=== PATIENT | female | born 1950 | race Caucasian/White ===

== ENCOUNTER 2017-04-30 07:35 | Day surgery (SDC) | payer MEDICARE, SELFPAY ==
[2017-04-30] VITALS (15 sets, daily range): BP systolic 92–122; BP diastolic 45–63; PULSE 64–87; RESP 16–20; O2SAT 96–99; BMI 22.4
--- NOTE | 2017-04-30 | IR_ITS ---
CARDIAC CATHETERIZATION DATE OF CATHETERIZATION:04/30/2017 11:23 AM PROCEDURES: 1. Left heart catheterization 2. Left ventriculogram 3. Selective coronary angiogram INDICATION FOR TEST: 1. Angina pectoris 2. Left bundle-branch block 3. Risk factor for coronary artery disease Informed consent was obtained prior to the procedure. COMPLICATIONS: None ESTIMATED BLOOD LOSS: Less than 10 ml. TECHNIQUE: One percent lidocaine used to anesthetize the right anterior aspect of the wrist. The right radial artery was accessed via the Seldinger technique. A 6 [place] sheath was placed in the right radial artery. 2.5 mg of verapamil, 800 mcg of nitroglycerin and 5000 U Heparin were given through the arterial sheath. The trap catheter was also used to perform left heart catheterization and left ventriculography. At the end of the procedure the patient was transferred to the post-op holding area in stable condition for arterial sheath removal. ANGIOGRAPHIC RESULTS: 1. The left main artery normal 2. The left anterior descending artery has proximal luminal irregularities of 5-10% with mild luminal irregularities in the mid segment of 5-10%. 3. The circumflex artery dominant normal 4. The right coronary artery is a large dominant vessel and has a proximal mostly concentric 30% stenosis which is smooth tubular 5. The FALL ventriculogram reveals normal 65% 6. The left ventricular end-diastolic pressure mildly elevated at 15 mmHg IMPRESSION: 1. Mild nonflow limiting coronary artery disease 2. Normal ejection fraction 3. Mildly elevated LVEDP PLAN: 1. Medical management 2. Patient likely has microvascular ischemia and or endothelial dysfunction 3. Antianginal medication should benefit with possible addition of low dose diuretics in order to decrease EDP 4. Cardiac rehabilitation 5. Avoidance of tobacco products 6. LDL less than 55
[2017-04-30 08:13] LABS: Basophils % 0.5 % (0.1-2.0); Eosinophils # 0.1 K/mm3 (0.0-0.4); Eosinophils % 2.3 % (0.1-12.0); Hematocrit 38.3 % (37.0-47.0); Hemoglobin 12.7 g/dL (12.2-16.2); Lymphocytes # 1.7 K/mm3 (0.7-4.5); Lymphocytes % 35.2 K/mm3 (10-50); Mean Corpuscular HGB Conc 33.1 g/dL (31.8-35.4); Mean Corpuscular Hemoglobin 28.5 pg (27.0-31.2); Mean Corpuscular Volume 86.3 fl (81-99); Mean Platelet Volume 7.3 fl (7.4-10.4); Monocytes # 0.3 K/mm3 (0.1-1.0); Monocytes % 5.4 % (1.7-9.3); Neutrophils # 2.8 K/mm3 (1.8-7.8); Neutrophils % 56.6 % (37.0-80.0); Platelet Count 180 K/mm3 (142-424); Red Blood Count 4.44 M/mm3 (4.20-5.40); Red Cell Distribution Width 12.1 % (11.5-17.5); White Blood Count 4.9 K/mm3 (4.8-10.8)
[2017-04-30 08:29] LABS: Anion Gap 13.2 mEq/L (5-15); Blood Urea Nitrogen 12 mg/dL (7-18); Carbon Dioxide 25 mmol/L (21.0-32.0); Chloride 105 mmol/L (98-107); Creatinine Clearance Estimated 51 mL/min (0-300); Estimated Glomerular Filt Rate 124 ml/min (>60); GFR (African American) 150 ML/MIN (>60); Glucose 89 mg/dL (74-106); Sodium 139 mmol/L (136-145)
[2017-04-30 08:33] LABS: Potassium 4.2 mmoL/L (3.5-5.1)
--- NOTE | 2017-04-30 16:40 | SUR.PHASEII ---
Pt arrived back at ER admissions shortly after leaving bleeding from her radial site, manual pressure was held for 20 minutes, dsg removed, site is no longer bleeding, slight area of bruising noted but no hematoma, patient is waiting in bay being observed to watch for recurrence of bleeding.
== END 2017-04-30 16:12 | disposition home or self-care (01) ==
LOC: CATHLAB 07:37
PROVIDERS: Visit Provider Internal Medicine
DX: I25.119 Atherosclerotic heart disease of native coronary artery with unspecified angina pectoris (principal); Z72.0 Tobacco use; I44.7 Left bundle-branch block, unspecified
CPT/HCPCS: 80048; 85025; 93458; 99152; C1725; C1769; J1644; Q9967

== ENCOUNTER 2017-05-01 21:12 | Emergency (ER) | payer MEDICARE, SELFPAY ==
[2017-05-01 21:19] VITALS: BP 130/76; PULSE 76; RESP 18; TEMP 36.4; O2SAT 99; BMI 22.3
== END 2017-05-01 22:09 | disposition left against medical advice (07) ==
LOC: ER 21:24
PROVIDERS: Emergency Provider Emergency Medicine
DX: Z53.29 Procedure and treatment not carried out because of patient's decision for other reasons (principal); R60.0 Localized edema
CPT/HCPCS: 99211; 99282

== ENCOUNTER → 2018-06-16 11:05 | Outpatient (CLI) | payer MEDICARE, SELFPAY ==
--- NOTE | 2018-06-16 11:15 | XR_ITS ---
EXAM: XR lumbar spine min 4V HISTORY: Low back pain ITS.REASON: LUMBAGO W/LT SCIATICA ORDERING PHYSICIAN: Jc Kinsey PATIENT AGE: 67 years COMPARISON: None FINDINGS: Normal alignment. No fracture or dislocation. No lytic or blastic change. No significant degenerative change. The disc spaces are preserved. IMPRESSION: Negative lumbar spine
== END ==
PROVIDERS: PCP Internal Medicine; Visit Provider Internal Medicine
DX: M54.42 Lumbago with sciatica, left side (principal)
CPT/HCPCS: 72110

== ENCOUNTER → 2018-07-21 13:25 | Outpatient (CLI) | payer MEDICARE, SELFPAY ==
--- NOTE | 2018-07-21 13:26 | CI_ITS ---
Cerebrovascular Exam Indications: 780.4 Dizziness and giddiness. IMPRESSIONS 1. The bilateral vertebral arteries are patent with normal antegrade flow. 2. Study suggests less than 20% stenosis involving the right internal carotid artery. 3. Study suggests less than 20% stenosis involving the left internal carotid artery. History: Risk factors: Extobacco use. Hyperlipidemia. Carotid duplex study. Complete study and Doppler flow study including spectral analysis, color and lorenzo scale imaging. Height: Height: 160cm. Height: 63in. Weight: Weight: 59kg. Weight: 129.7lb. Body mass index: BMI: 23kg/m^2. Body surface area: BSA: 1.63m^2. Location: Vascular laboratory. Patient status: Outpatient. Tables: Arterial flow: + +--------+--------+ Location V sys V ed + +--------+--------+ Right CCA - proximal 99cm/s 21.2cm/s + +--------+--------+ Right CCA - distal 77.8cm/s 21.2cm/s + +--------+--------+ Right ECA 71.9cm/s 10.4cm/s + +--------+--------+ Right ICA - proximal 86.4cm/s 27.5cm/s + +--------+--------+ Right ICA - mid 79.8cm/s 21.7cm/s + +--------+--------+ Right ICA - distal 89.3cm/s 30cm/s + +--------+--------+ Right vertebral 40.8cm/s 12.6cm/s + +--------+--------+ Left CCA - proximal 95.6cm/s 20cm/s + +--------+--------+ Left CCA - distal 77.1cm/s 22.2cm/s + +--------+--------+ Left ECA 55.4cm/s 7.6cm/s + +--------+--------+ Left ICA - proximal 70.3cm/s 22.4cm/s + +--------+--------+ Left ICA - mid 82.8cm/s 23.9cm/s + +--------+--------+ Left ICA - distal 86.2cm/s 29.4cm/s + +--------+--------+ Left vertebral 73.2cm/s 21.8cm/s + +--------+--------+ Velocity ratios: + + + + + + Right, V sys Right, V ed Left, V sys Left, V ed + + + + + + Max ICA/dist CCA 1.15 1.42 1.12 1.32 + + + + + + (Report amended ) Electronically signed by: Nabil Liz [id number]
== END ==
PROVIDERS: PCP Internal Medicine; Visit Provider Internal Medicine
DX: E78.2 Mixed hyperlipidemia (principal); I25.10 Atherosclerotic heart disease of native coronary artery without angina pectoris; I44.7 Left bundle-branch block, unspecified; R06.09 Other forms of dyspnea; R07.9 Chest pain, unspecified; R42 Dizziness and giddiness; R94.31 Abnormal electrocardiogram [ECG] [EKG]; T73.2XXA Exhaustion due to exposure, initial encounter
CPT/HCPCS: 93306; 93880

== ENCOUNTER 2020-06-01 15:07 | Emergency (ER) | payer MEDICARE, SELFPAY ==
[2020-06-01 15:33] VITALS: BP 155/79; PULSE 76; RESP 16; TEMP 36.5; O2SAT 100; BMI 22.6
--- NOTE | 2020-06-01 15:41 | HMH.EDUTC ---
[facility] Disposition Clinical Impression: Shingles Qualifiers: Herpes zoster complications: without complications Qualified Code(s): B02.9 - Zoster without complications Disposition: Home, Self-Care Condition on Discharge: Good Instructions: Shingles, DI for Shingles, Acyclovir Additional Instructions: Shingles is a painful rash. Shingles is caused by the same virus that causes chickenpox (varicella-zoster). After you get chickenpox, the virus stays in your body for several years without causing any symptoms. Shingles occurs when the virus becomes active again. The active virus travels along a nerve to your skin and causes a rash You may need any of the following: Antiviral medicine helps decrease symptoms and healing time. They may also decrease your risk of developing nerve pain. You will need to start taking them within 3 days of the start of symptoms to prevent nerve pain. Acetaminophen decreases pain and fever. It is available without a doctor's order. Follow directions. Read the labels of all other medicines you are using to see if they also contain acetaminophen, or ask your doctor or pharmacist. Acetaminophen can cause liver damage if not taken correctly. Do not use more than 4 grams (4,000 milligrams) total of acetaminophen in one day. NSAIDs , such as ibuprofen, help decrease swelling, pain, and fever. This medicine is available with or without a doctor's order. NSAIDs can cause stomach bleeding or kidney problems in certain people. If you take blood thinner medicine, always ask if NSAIDs are safe for you. Always read the medicine label and follow directions. Do not give these medicines to children under 6 months of age without direction from your child's healthcare provider. Keep your rash clean and dry. Cover your rash with a bandage or clothing. Do not use bandages that stick to your skin. The sticky part may irritate your skin and make your rash last longer. How can you care for yourself at home? Take your medicines exactly as prescribed. Call your doctor if you think you are having a problem with your medicine. Antiviral medicine helps you get better faster. Try not to scratch or pick at the blisters. They will crust over and fall off on their own if you leave them alone. Put cool, wet cloths on the area to relieve pain and itching. You can also use calamine lotion. Try not to use so much lotion that it cakes and is hard to get off. Put cornstarch or baking soda on the sores to help dry them out so they heal faster. Do not use thick ointment, such as petroleum jelly, on the sores. This will keep them from drying and healing. To help remove loose crusts, soak them in tap water. This can help decrease oozing, and dry and soothe the skin. Take an [id number] pain medicine, such as acetaminophen (Tylenol), ibuprofen (Advil, Motrin), or naproxen (Aleve). Read and follow all instructions on the label. Avoid close contact with people until the blisters have healed. It is very important for you to avoid contact with anyone who has never had chickenpox or the chickenpox vaccine. women, young babies, and anyone else who has a hard time fighting infection (such as someone with HIV, diabetes, or cancer) is especially at risk. Follow up with your Family Doctor as needed Return if needed Straight to ER if any life threatening symptoms Prescriptions: Acyclovir [Acyclovir 800mg tab] 800 mg PO 5XDAY 7 Days #35 tab Transmission Status: Pending to [facility] Referrals: Jc Kinsey [Primary Care Provider] - As needed Time of Disposition: 15:50 Medical Decision Making - Gigi Inquiry Pt receiving controlled substance: No Gigi was queried for this patient: No Vital Signs: 06/01/20 15:33 Temperature 97.7 F Temperature Source Tympanic Pulse Rate [Right] 76 Respiratory Rate 16 Blood Pressure [Right Arm] 155/79 H Blood Pressure Mean [Right Arm] 104 Blood Pressure Source [Right Arm] Automatic Cuff Blood Pressure Position
[2020-06-01 16:02] VITALS: BP 150/77; PULSE 71; RESP 16; TEMP 36.5
== END 2020-06-01 16:02 | disposition home or self-care (01) ==
PROVIDERS: Emergency Provider Nurse Practitioner; PCP Internal Medicine
DX: B02.9 Zoster without complications (principal); M79.7 Fibromyalgia; K21.9 Gastro-esophageal reflux disease without esophagitis; E03.9 Hypothyroidism, unspecified; Z87.891 Personal history of nicotine dependence; Z79.899 Other long term (current) drug therapy
CPT/HCPCS: G0463; 99202

== ENCOUNTER → 2021-03-28 11:33 | Outpatient (CLI) | payer MEDICARE, SELFPAY ==
[2021-03-28 11:49] LABS: Basophils % 0.3 % (0.1-2.0); Eosinophils # 0.1 K/mm3 (0.0-0.4); Eosinophils % 2.2 % (0.1-12.0); Hematocrit 37.4 % (37.0-47.0); Hemoglobin 12.6 g/dL (12.2-16.2); Lymphocytes # 1.7 K/mm3 (0.7-4.5); Lymphocytes % 34.7 % (10-50); Mean Corpuscular HGB Conc 33.8 g/dL (31.8-35.4); Mean Corpuscular Hemoglobin 29.8 pg (27.0-31.2); Mean Corpuscular Volume 88.2 fl (81-99); Mean Platelet Volume 7.8 fl (7.4-10.4); Monocytes # 0.4 K/mm3 (0.1-1.0); Monocytes % 7.5 % (1.7-9.3); Neutrophils # 2.6 K/mm3 (1.8-7.8); Neutrophils % 55.2 % (37.0-80.0); Platelet Count 208 K/mm3 (142-424); Red Blood Count 4.24 M/mm3 (4.20-5.40); Red Cell Distribution Width 12.7 % (11.5-17.5); White Blood Count 4.8 K/mm3 (4.8-10.8)
[2021-03-28 12:19] LABS: Erythrocyte Sedimentation Rate 21 mm/hr (0-30)
[2021-03-28 12:53] LABS: Alanine Aminotransferase 51 U/L (12-78); Anion Gap 9.1 mEq/L (5-15); Aspartate Amino Transferase 50 U/L (14-36); Bilirubin,Total 0.3 mg/dl (0.2-1.3); Blood Urea Nitrogen 12 mg/dl (7-17); Calcium 9.1 mg/dl (8.4-10.2); Carbon Dioxide 32 mmol/L (22.0-30.0); Chloride 98 mmol/L (98-107); Estimated Glomerular Filt Rate 99 ml/min (>60); GFR (African American) 120 ML/MIN (>60); Glucose 86 mg/dl (74-100); Potassium 4.1 mmoL/L (3.5-5.1); Sodium 135 mmol/L (136-145); Total Protein,Serum 6.6 g/dl (6.3-8.2)
[2021-03-28 12:54] LABS: Albumin Level 4.2 g/dl (3.5-5.0); Albumin/Globulin Ratio 1.8 (1.1-1.8); Alkaline Phosphatase 84 U/L (38-126); Globulin 2.4 g/dL (1.3-3.2)
[2021-03-28 13:25] LABS: Thyroid Stimulating Hormone 1.42 uIU/mL (0.465-4.68)
[2021-03-28 13:59] LABS: Vitamin B12 378 pg/mL (239-931)
== END ==
PROVIDERS: Visit Provider Internal Medicine
DX: E03.9 Hypothyroidism, unspecified (principal); E78.5 Hyperlipidemia, unspecified; R73.01 Impaired fasting glucose; G60.9 Hereditary and idiopathic neuropathy, unspecified; M79.7 Fibromyalgia
CPT/HCPCS: 80053; 82607; 82746; 84443; 85025; 85651

== ENCOUNTER → 2021-04-03 12:48 | Outpatient (CLI) | payer MEDICARE, SELFPAY ==
--- NOTE | 2021-04-03 13:08 | US_ITS ---
APPROVED REPORT Exam Type: Lower Extremity Segmental Pressures Brim Edge Trimmer: [place]hele RVT Indications Claudication: Bilaterally Rest Pain: Bilaterally Numbness/Tingling History of Smoking DECREASED PULSES BILATERAL Risk Factors Hyperlipidemia History of Smoking Pressures/Indices Right Indices Left Indices Brachial 143.00 mmHg Brachial 159.00 mmHg Low Thigh 160.00 mmHg 1.01 Low Thigh 167.00 mmHg 1.05 Calf 168.00 mmHg 1.06 Calf 177.00 mmHg 1.11 Ankle(PT) 187.00 mmHg 1.18 Ankle(PT) 179.00 mmHg 1.13 Ankle(DP) 169.00 mmHg 1.06 Ankle(DP) 174.00 mmHg 1.09 Digit 67.00 mmHg 0.42 Digit 76.00 mmHg 0.48 Findings RT KAROLYN:1.18 LT KAROLYN:1.13 RT TBI:0.42 LT TBI:0.48 NORMAL WAVEFORMS BILATERAL NORMAL PULSES BILATERAL Conclusion RT KAROLYN:1.18 LT KAROLYN:1.13 RT TBI:0.42 LT TBI:0.48 Slightly low TBI suggesting small vessel disease NORMAL WAVEFORMS BILATERAL NORMAL PULSES BILATERAL Electronically signed by : Nabil Liz MD 04/03/2021 15:47:26
== END ==
PROVIDERS: PCP Internal Medicine; Visit Provider Internal Medicine
DX: R09.89 Other specified symptoms and signs involving the circulatory and respiratory systems (principal)
CPT/HCPCS: 93923

== ENCOUNTER 2021-10-12 11:43 | Emergency (ER) | payer MEDICARE, SELFPAY ==
--- NOTE | 2021-10-12 12:00 | HMH.EDUTC ---
[facility] [place] Clinical Impression: Contact dermatitis Qualifiers: Contact dermatitis type: unspecified Contact dermatitis trigger: unspecified trigger Qualified Code(s): L25.9 - Unspecified contact dermatitis, unspecified cause Disposition: Home, Self-Care Condition on Discharge: Good Instructions: DI for Contact Dermatitis Additional Instructions: Try to identify and avoid contact with the offending substance. Don't put the topical steroids (triamcinolone) on your face or your groin. Follow up with your regular doctor. GO TO THE ER FOR ANY WORSENING SYMPTOMS OR CONCERNS Prescriptions: Triamcinolone Acetonide 1 applicatio TP TIDP PRN 7 Days #1 gm PRN Reason: Itching Transmission Status: Received by [facility] Referrals: Jc Kinsey MD [Primary Care Provider] - Time of Disposition: 12:24 Medical Decision Making - Medical Records Medical records reviewed: No: I reviewed the patient's medical records. - Gigi Inquiry Pt receiving controlled substance: No Vital Signs: 10/12/21 12:04 10/12/21 12:30 Temperature 98.0 F 98.0 F Temperature Source Oral Pulse Rate 63 Pulse Rate [Left] 63 Respiratory Rate 17 17 Blood Pressure 146/53 H Blood Pressure [Right Arm] 146/53 H Blood Pressure Mean [Right Arm] 84 02 Sat by Pulse Oximetry 99 Medical Decision Narrative: she refused oral steroids and im injection steroids. [facility] [place] - General Stated complaint: rash Time Seen by Provider: 10/12/21 12:00 - History of Present Illness Provider Complaint: She has had an itchy rash on her lower back for the past 2 days. She denies any known exposure to any irritants. - Related Data Home Medications Medication Instructions Recorded Confirmed aspirin 81 mg tablet,delayed 81 mg PO ONCE 04/23/17 07/12/21 release melatonin 5 mg tablet 5 mg PO HS PRN 08/06/18 07/12/21 levothyroxine 88 mcg tablet 75 mcg PO DAILY tab 06/22/20 07/12/21 zinc acetate 50 mg (zinc) capsule 50 mg PO DAILY 06/22/20 07/12/21 zolpidem 5 mg tablet 5 mg PO HS tab 06/22/20 06/22/20 Previous Rx's Medication Instructions Recorded atorvastatin 20 mg tablet See Rx Instructions .ROUTE 03/29/21 .COMPLEX #90 tab Triamcinolone Acetonide 1 applicatio TP TIDP PRN 7 Days #1 10/12/21 gm Allergies Allergy/AdvReac Type Severity Reaction Status Date / Time levofloxacin Allergy Mild Verified 10/12/21 12:06 [facility] History - Hepatitis A Screen Attestation statement:: This patient has been screened for Hepatitis A risk factors. I have reviewed the patient's past medical history: Yes Medical History: Reports:: Gastroesophageal Reflux Disease(GERD) Denies:: Cancer, Diabetes Mellitus Type 1, Diabetes Mellitus Type 2, MRSA, Seizures Other Medical History: Reports: Fibromyalgia, Hypothyroidism Other Surgeries: Yes: Cardiac Catheterization, Other Amputation: No Fractures: No - Social History Smoking Status: Never smoker Tobacco Type: cigarettes Alcohol Intake: never Alcohol Intake Frequency:: other Substance Use Type: denies use Occupational Status: other Housing: house Household Members: spouse Family Hx:: Coronary Artery Disease, Heart Attack ROS Obtained: Yes All systems reviewed & no additional complaints - Constitutional Constitutional: Denies chills, Denies fever(s) - Musculoskeletal Musculoskeletal: Denies joint pain - Integumentary/Breasts Skin/Breast: Reports as per HPI Physical Exam - General General appearance: alert, in no apparent distress - Head Head exam: atraumatic, normocephalic, normal inspection - Eye Eye exam: Present: normal appearance, PERRL, EOMI - ENT ENT exam: Present: normal exam, normal oropharynx, mucous membranes moist, TM's normal bilaterally, normal external ear exam - Neck Neck exam: Present: normal inspection, full ROM, trachea midline. Absent: meningismus, lymphadenopathy - Chest Chest inspection: Present: normal inspection, symmetric c
[2021-10-12 12:04] VITALS: BP 146/53; PULSE 63; RESP 17; TEMP 36.7; O2SAT 99; BMI 22.8
[2021-10-12 12:30] VITALS: BP 146/53; PULSE 63; RESP 17; TEMP 36.7
== END 2021-10-12 12:31 | disposition home or self-care (01) ==
PROVIDERS: Emergency Provider Nurse Practitioner Family; PCP Internal Medicine
DX: L25.9 Unspecified contact dermatitis, unspecified cause (principal)
CPT/HCPCS: 99212; G0463

== ENCOUNTER → 2022-03-13 11:17 | Outpatient (CLI) | payer MEDICARE, SELFPAY ==
[2022-03-13 12:18] LABS: Basophils # 0.1 K/mm3 (0-0.2); Basophils % 0.9 % (0.1-2.0); Eosinophils # 0.1 K/mm3 (0.0-0.4); Eosinophils % 1.4 % (0.1-12.0); Hematocrit 39.9 % (37.0-47.0); Hemoglobin 12.9 g/dL (12.2-16.2); Lymphocytes # 1.9 K/mm3 (0.7-4.5); Mean Corpuscular HGB Conc 32.4 g/dL (31.8-35.4); Mean Corpuscular Hemoglobin 29.1 pg (27.0-31.2); Mean Corpuscular Volume 89.8 fl (81-99); Mean Platelet Volume 7.5 fl (7.4-10.4); Monocytes # 0.3 K/mm3 (0.1-1.0); Monocytes % 5.7 % (1.7-9.3); Neutrophils # 3.1 K/mm3 (1.8-7.8); Neutrophils % 57.1 % (37.0-80.0); Platelet Count 250 K/mm3 (142-424); Red Blood Count 4.44 M/mm3 (4.20-5.40); Red Cell Distribution Width 13.1 % (11.5-17.5); White Blood Count 5.4 K/mm3 (4.8-10.8)
[2022-03-13 12:48] LABS: Chloride 101 mmol/L (98-107); Potassium 4.7 mmoL/L (3.5-5.1); Sodium 134 mmol/L (136-145)
[2022-03-13 12:51] LABS: Alanine Aminotransferase 38 U/L (12-78); Albumin Level 4.3 g/dl (3.5-5.0); Albumin/Globulin Ratio 1.7 (1.1-1.8); Alkaline Phosphatase 96 U/L (38-126); Anion Gap 8.7 mEq/L (5-15); Aspartate Amino Transferase 40 U/L (14-36); Blood Urea Nitrogen 21 mg/dl (7-17); Calcium 9.5 mg/dl (8.4-10.2); Carbon Dioxide 29 mmol/L (22.0-30.0); Cholesterol 181 mg/dl (140-200); Estimated Glomerular Filt Rate 99 ml/min (>60); GFR (African American) 120 ML/MIN (>60); Globulin 2.6 g/dL (1.3-3.2); Glucose 92 mg/dl (74-100); Total Protein,Serum 6.9 g/dl (6.3-8.2); Triglycerides 66 mg/dl (30-150); VLDL Cholesterol 13 mg/dL (0-40)
[2022-03-13 12:52] LABS: Bilirubin,Total 0.1 mg/dl (0.2-1.3); Chol/HDL Ratio 2.1 (1-3.5); HDL Cholesterol 87 mg/dl (40-60)
[2022-03-13 13:02] LABS: Direct LDL Cholesterol 61.87 mg/dL (100-129)
[2022-03-13 13:03] LABS: Erythrocyte Sedimentation Rate 19 mm/hr (0-30)
[2022-03-13 13:08] LABS: 25-OH Vitamin D, Total 29.2 ng/mL (30-100)
[2022-03-13 13:21] LABS: Thyroid Stimulating Hormone 1.36 uIU/mL (0.465-4.68)
[2022-03-13 14:08] LABS: Vitamin B12 324 pg/mL (239-931)
[2022-03-13 18:17] LABS: Free T4 (Free Thyroxine) 1.66 ng/dl (0.78-2.19)
== END ==
PROVIDERS: PCP Internal Medicine; Visit Provider Internal Medicine
DX: I25.10 Atherosclerotic heart disease of native coronary artery without angina pectoris (principal); E78.5 Hyperlipidemia, unspecified; E55.9 Vitamin D deficiency, unspecified; E03.9 Hypothyroidism, unspecified; R73.01 Impaired fasting glucose; G60.9 Hereditary and idiopathic neuropathy, unspecified; M79.7 Fibromyalgia
CPT/HCPCS: 36415; 80053; 80061; 82306; 82607; 84439; 84443; 85025; 85651

== ENCOUNTER → 2022-07-18 17:02 | Outpatient (CLI) | payer MEDICARE, SELFPAY ==
[2022-07-18 18:50] LABS: Alanine Aminotransferase 26 U/L (12-78); Albumin Level 4.5 g/dl (3.5-5.0); Alkaline Phosphatase 72 U/L (38-126); Aspartate Amino Transferase 36 U/L (14-36); Bilirubin,Indirect 0.3 mg/dL (0.0-0.9); Bilirubin,Total 0.3 mg/dl (0.2-1.3); Bilirubin,Unconjugated 0.4 mg/dL (0.0-1.1); Total Protein,Serum 7.1 g/dl (6.3-8.2)
[2022-07-18 19:21] LABS: Thyroid Stimulating Hormone 0.73 uIU/mL (0.465-4.68)
== END ==
PROVIDERS: PCP Internal Medicine; Visit Provider Internal Medicine
DX: E03.9 Hypothyroidism, unspecified (principal); L60.1 Onycholysis; Z87.19 Personal history of other diseases of the digestive system
CPT/HCPCS: 80076; 84443

== ENCOUNTER → 2023-02-25 15:08 | Outpatient (CLI) | payer MEDICARE, SELFPAY ==
--- NOTE | 2023-02-25 15:21 | XR_ITS ---
FINAL REPORT CLINICAL HISTORY: .bilateral knee pain FINDINGS: RIGHT KNEE 2 views of the right knee were obtained. There is no acute fracture or dislocation. There are mild degenerative changes. Visualized joint spaces are normally aligned. Soft tissues are unremarkable. IMPRESSION: No acute bony abnormality. Reviewed, Interpreted and Dictated by Quinn Arzate III, MD Transcribed by Shanta Alvarez Authenticated and [facility]
--- NOTE | 2023-02-25 15:21 | XR_ITS ---
FINAL REPORT CLINICAL HISTORY: EDY KNEE PAIN FINDINGS: LEFT KNEE 2 views of the left knee were obtained. There is no acute fracture or dislocation. There are mild degenerative changes. Visualized joint spaces are normally aligned. Soft tissues are unremarkable. IMPRESSION: No acute bony abnormality. Reviewed, Interpreted and Dictated by Quinn Arzate III, MD Transcribed by Shanta Alvarez Authenticated and [facility]
== END ==
PROVIDERS: PCP Internal Medicine; Visit Provider Internal Medicine
DX: M17.0 Bilateral primary osteoarthritis of knee (principal)
CPT/HCPCS: 73562

== ENCOUNTER → 2023-03-04 10:32 | Outpatient (CLI) | payer MEDICARE, SELFPAY ==
[2023-03-04 10:51] LABS: Basophils % 0.4 % (0.1-2.0); Eosinophils # 0.1 K/mm3 (0.0-0.4); Eosinophils % 1.7 % (0.1-12.0); Hematocrit 40.7 % (37.0-47.0); Hemoglobin 13.2 g/dL (12.2-16.2); Lymphocytes # 1.5 K/mm3 (0.7-4.5); Mean Corpuscular HGB Conc 32.5 g/dL (31.8-35.4); Mean Corpuscular Hemoglobin 29.6 pg (27.0-31.2); Mean Corpuscular Volume 91.2 fl (81-99); Mean Platelet Volume 7.8 fl (7.4-10.4); Monocytes # 0.3 K/mm3 (0.1-1.0); Monocytes % 6.7 % (1.7-9.3); Neutrophils # 2.7 K/mm3 (1.8-7.8); Neutrophils % 58.1 % (37.0-80.0); Platelet Count 233 K/mm3 (142-424); Red Blood Count 4.46 M/mm3 (4.20-5.40); White Blood Count 4.6 K/mm3 (4.8-10.8)
[2023-03-04 11:06] LABS: Alanine Aminotransferase 83 U/L (12-78); Alkaline Phosphatase 101 U/L (38-126); Aspartate Amino Transferase 69 U/L (14-36); Bilirubin,Total 0.4 mg/dl (0.2-1.3); Blood Urea Nitrogen 13 mg/dl (7-17); Calcium 8.7 mg/dl (8.4-10.2); Carbon Dioxide 29 mmol/L (22.0-30.0); Chloride 102 mmol/L (98-107); Cholesterol 238 mg/dl (140-200); Estimated Glomerular Filt Rate 99 ml/min (>60); GFR (African American) 119 ML/MIN (>60); Glucose 85 mg/dl (74-100); HDL Cholesterol 80 mg/dl (40-60); Triglycerides 66 mg/dl (30-150); VLDL Cholesterol 13 mg/dL (0-40)
[2023-03-04 11:07] LABS: Albumin Level 4.2 g/dl (3.5-5.0); Albumin/Globulin Ratio 1.4 (1.1-1.8); Anion Gap 10.5 mEq/L (5-15); Globulin 2.9 g/dL (1.3-3.2); Potassium 4.5 mmoL/L (3.5-5.1); Sodium 137 mmol/L (136-145); Total Protein,Serum 7.1 g/dl (6.3-8.2)
[2023-03-04 11:17] LABS: Direct LDL Cholesterol 112.91 mg/dL (100-129)
[2023-03-04 11:21] LABS: Erythrocyte Sedimentation Rate 24 mm/hr (0-30)
[2023-03-04 11:37] LABS: Thyroid Stimulating Hormone 2.03 uIU/mL (0.465-4.68)
[2023-03-04 11:56] LABS: Vitamin B12 333 pg/mL (239-931)
[2023-03-04 13:06] LABS: Hemoglobin A1C 5.6 % (4.0-6.0)
[2023-03-05 12:18] LABS: Albumin 3.5 g/dL (2.9-4.4); Alpha-1-Globulin 0.3 g/dL (0.0-0.4); Alpha-2-Globulin 0.9 g/dL (0.4-1.0); Protein, Total 6.7 g/dL (6.0-8.5)
== END ==
PROVIDERS: PCP Internal Medicine; Visit Provider Internal Medicine
DX: G60.9 Hereditary and idiopathic neuropathy, unspecified (principal); E78.5 Hyperlipidemia, unspecified; E03.9 Hypothyroidism, unspecified; R73.01 Impaired fasting glucose; M79.7 Fibromyalgia; M17.0 Bilateral primary osteoarthritis of knee
CPT/HCPCS: 80053; 80061; 82607; 83036; 84155; 84165; 84443; 85025; 85651

== ENCOUNTER → 2023-03-06 07:41 | Outpatient (CLI) | payer MEDICARE, SELFPAY ==
--- NOTE | 2023-03-06 07:45 | US_ITS ---
FINAL REPORT CLINICAL HISTORY: ELEVATED LIVER ENZYMES FINDINGS: RIGHT UPPER QUADRANT ULTRASOUND Sonographic images of the right upper quadrant were obtained. The pancreas is partially obscured.The liver has an unremarkable appearance.The gallbladder appears normal without evidence of gallstones.The common duct is normal. Limited images of the right kidney are normal. IMPRESSION: No acute process. Reviewed, Interpreted and Dictated by Patrick Nathan MD Transcribed by Milly Kaur Authenticated and [facility]
== END ==
PROVIDERS: PCP Internal Medicine; Visit Provider Internal Medicine
DX: R74.01 Elevation of levels of liver transaminase levels (principal)
CPT/HCPCS: 76705

== ENCOUNTER → 2023-03-18 09:13 | Outpatient (CLI) | payer MEDICARE, SELFPAY ==
--- NOTE | 2023-03-18 09:25 | XR_ITS ---
FINAL REPORT CLINICAL HISTORY: ABN SCR/POSTMENOPAUSAL COMPARISON: None FINDINGS: Using L1-4, the bone mineral density of the spine is 0.844 g/cm2, corresponding to T-score of -1.8, consistent with osteopenia. Using the left hip, the bone mineral density of the femoral neck is 0.677 g/cm2, corresponding to a T-score of -1.6, consistent with osteopenia. Using the right hip, the bone mineral density of the femoral neck is 0.651 g/cm2, corresponding to a T-score of -1.8, consistent with osteopenia. FRAX 10 year fracture risk is 1.9% for a hip fracture and 10% for a major osteoporotic fracture. NOTE: T-score: Standard deviation compared with peak bone mass of young adult mean. *Following the recommendations of the International Society of Bone densitometry, classification of hip BMD is based on the lower of two T-scores; total hip or femoral neck. IMPRESSION: Diminished bone mineral density consistent with osteopenia. Reviewed, Interpreted and Dictated by Patrick Nathan MD Transcribed by Allison Vora Authenticated and [facility]
== END ==
PROVIDERS: PCP Internal Medicine; Visit Provider Internal Medicine
DX: Z78.0 Asymptomatic menopausal state (principal)
CPT/HCPCS: 77080

== ENCOUNTER 2023-04-23 10:31 | Outpatient (POV) | payer MEDICARE, SELFPAY | END 2023-04-23 23:59 | disposition home or self-care (01) | LOC: SC 10:32 | PROVIDERS: PCP Internal Medicine; Visit Provider Dermatology | DX: Z00.00 Encounter for general adult medical examination without abnormal findings (principal) ==

== ENCOUNTER 2023-05-16 10:00 | Outpatient (RCR) | payer MEDICARE, SELFPAY ==
--- NOTE | 2023-04-11 11:46 | HMH.PTOPEV ---
PT Outpatient Evaluation Rehab PT Outpatient Evaluation Start: 04/11/23 11:34 Freq: Status: Active Protocol: Document 04/11/23 11:34 CHELI (Rec: 04/11/23 11:46 CHELI [id number]) E-signed By Amol Valles, PT Outpatient Therapy Subjective History Subjective History Pt reports h/o chronic right pain since 'power walking' ~ 3 months ago. Pt reports anterio-medial right knee pain since incident 3 months ago, also intermittent posterior right knee pain 'which is caused by my Ewing's cyst.' Pt reports recent Xray of right knee have revealed 'arthritis' . PMH: chronic bilateral knee and hip pain, LBP, fibromyalgia New diagnosis of cancer in past 12 No months? Chief Complaint Pain,Stiff,Swelling,Weakness Symptom Type Ache,Sharp,Dull Symptoms Relieved By Rest/Positioning,Elevation Symptoms Aggravated By Standing,Physical Activity, Walking Prior Functional Limitations Housework,Standing,Walking Current Functional Limitations Housework,Driving,Standing, Walking Symptom Description Constant but Variable Level of pain today (0-10) 5 Pain scale - at its best (0-10) 1 Pain scale - at its worst (0-10) 7 Hip/Knee Eval Gait Observation General Gait Pattern Observation Antalgic Gait Assistive Device Assistive Devices None / NA Palpation Tenderness right Knee Palpation Finding Tenderness Knee Palpation Overall Comment 3/4 pes anserine insertion, 2- 3/4 MCL/medial jt line, 1-2/4 ITB insertion MMT Hip Flexion Strength Grade 4- Good- Hip Abduction Strength Grade 4- Good- Hip Adduction Strength Grade 4- Good- Hip Extension Strength Grade 4- Good- Hip External Rotation Strength Grade 4 Good Hip Internal Rotation Strength Grade 4 Good Knee Extension Strength Grade 5 Normal Knee Flexion Strength Grade 5 Normal ROM Hip Flexion w/Knee Extended Passive 0-70 Range of Motion (degrees) Knee Flexion Active Range of Motion ( 0-124 degrees) Effusion joint effusion knee exam standard right Mid - Patellar Circumerential Measure ( 37.5 cm) Special Tests Knee Valgus Stress Test Negative Right Knee Varus Stress Test Negative Right Knee Gil Test Negative Right Patella Apprehension Test Negative Right Lower Extremity Functional Index Activities Today, do you or would you have any difficulty at all with: a.Any of your usual work, housework or A little bit of difficulty school activities b. Your usual hobbies, recreational or Moderate difficulty sporting activities c. Getting into or out of the bath A little bit of difficulty d. Walking between rooms No difficulty e. Putting on your shoes or socks No difficulty f. Squatting Quite a bit of difficulty g. Lifting an object, like a bag of No difficulty groceries from the floor h. Performing light activities around A little bit of difficulty your home i. Performing heavy activities around Quite a bit of difficulty your home j. Getting into or out of a car No difficulty k. Walking 2 blocks Moderate difficulty l. Walking a mile Quite a bit of difficulty m. Going up or down 10 stairs (about 1 No difficulty flight of stairs) n. Standing for 1 hour A little bit of difficulty o. Sitting for 1 hour No difficulty p. Running on even ground Quite a bit of difficulty q. Running on uneven ground Quite a bit of difficulty r. Making sharp turns while running fast Quite a bit of difficulty s. Hopping Moderate difficulty t. Rolling over in bed No difficulty LEFI Score Lower Extremity Functional Index Score 52 Outpatient Therapy Assessment Impairments Problems/Impairmments Palpation Tenderness,Impaired Range of Motion,Impaired Strength,Impaired Gait Pattern ,Impaired Walking,Impaired Standing,Impaired Driving, Impaired Household Care, Subjective C/O Pain,Impaired Self Care/Self Management Prognosis Rehab Potential Good Clinical Impression Consistent with Diagnosis Yes Short Term Goals Number of Weeks 4 Decreased Palpation Tenderness Yes: 1-2/4 right knee Increase Range of Motion Yes: right knee AROM WFL Increase Strength Yes: 4/5 RIGHT HIP MM Increase Ability to Walk Yes: 15MIN Increase Ability to Stand Yes: 15MIN Improve Ability For Household Care Yes: 15MIN Improve LEFI Score Yes: 55-60 Decrease Subjective C/O Pain Yes: 3-4/10 W/ABOVE ACTIVITIES Patient to be Ind w/ HEP Yes Construction Engineering Manager Goals Number of Weeks 6-8 Decreased Palpation Tenderness Yes: 0-1/4 RIGHT KNEE Increase Strength Yes: 4+-5/5 RLE Improve Gait Pattern without Assistive Yes: WFL ON LEVEL TERRAIN Device Increase Ability to Walk Yes: 30MIN Increase Ability to Stand Yes: 30MIN Improve Ability For Household Care Yes: 30MIN Improve LEFI Score Yes: 65-70 Decrease Subjective C/O Pain Yes: 0-2/10 W/ABOVE ACTIVITIES Patient to be Ind w/ Advanced HEP Yes Outpatient Therapy Plan of Care Treatment Plan May Include Therapeutic Exercise Including Home Yes Exercise Program Manual Therapy Techniques Yes Neuromuscular Re-education Yes Therapeutic Activities to Return to Yes Previous Functional/Work Level Gait Training Yes ADL/Self Care Education Yes Dry Needling Yes Thermal Modalities Yes Electrical Stimulation Yes Ultrasound/Phonophoresis Yes Iontophoresis Yes Orthotics/Bracing/Splinting Yes Vasopneumatic Compression Pump Yes Eval/Re-Eval Yes Frequency Times per week 2-3 Duration Number of Weeks 6-8 Addendums This patient is a candidate for social No or vocational rehab? Patient/Guardian verbally acknowledges Yes understanding of treatment program and consents to further treatment? Patient/Guardian verbally acknowledges Yes understanding of diagnosis, prognosis and goals for treatment? Eval Complexity PT Charges [id number] - Moderate Complexity Shoulder/Elbow Eval Shoulder Objective Measurements Elbow Objective Measurements PHYSICIAN CERTIFICATION: I certify the specified therapy services for Milly Lea are required, authorized, and reviewed every 30 days.
--- NOTE | 2023-05-10 13:59 | HMH.RHREAS ---
Rehab Reassessment Rehab OP Re-assessment Start: 04/11/23 11:34 Freq: Status: Active Protocol: Document 05/10/23 13:22 CHELI (Rec: 05/10/23 13:59 CHELI [id number]) E-signed By Amol Valles, PT Lower Extremity Functional Index Activities Today, do you or would you have any difficulty at all with: a.Any of your usual work, housework or A little bit of difficulty school activities b. Your usual hobbies, recreational or Quite a bit of difficulty sporting activities c. Getting into or out of the bath No difficulty d. Walking between rooms No difficulty e. Putting on your shoes or socks No difficulty f. Squatting Moderate difficulty g. Lifting an object, like a bag of A little bit of difficulty groceries from the floor h. Performing light activities around No difficulty your home i. Performing heavy activities around Extreme difficulty or unable your home to perform activity j. Getting into or out of a car A little bit of difficulty k. Walking 2 blocks A little bit of difficulty l. Walking a mile Extreme difficulty or unable to perform activity m. Going up or down 10 stairs (about 1 A little bit of difficulty flight of stairs) n. Standing for 1 hour Moderate difficulty o. Sitting for 1 hour No difficulty p. Running on even ground Quite a bit of difficulty q. Running on uneven ground Quite a bit of difficulty r. Making sharp turns while running fast Quite a bit of difficulty s. Hopping A little bit of difficulty t. Rolling over in bed No difficulty LEFI Score Lower Extremity Functional Index Score 50 Rehab Re-assessment Subjective Subjective Pt reports 0-2/10 right knee pain on VAS this am, and feels 50% better overall since I eval. Pt reports 'I don't feel the pain nearly as often as I did.' Objective Objective Notes MMT: RIGHT HIP FLX 4+-5/5, R HIP ABD 4+/5, R HIP ADD 4+-5/5 , R HIP EXT 4+-5/5, R KNEE EXT 5/5, R KNEE FLX 4+/5 TTP: RIGHT KNEE MEDIAL JT LINE 2/4, PES ANSERINE INSERTION 1 /4 AROM: WFL RIGHT KNEE FLX GAIT: WFL ON level terrain Assessment Progress Assessment Progressing as Expected Assessment Notes SIGNIFICANT IMPROVEMENTS IN TTP, AROM, AND STRENGTH Patient goals met STG'S 11/14 LTG'S 08/14 Goals Not Met STG'S 04/16, LTG'S 07/15 Plan Plan Pt to continue w/skilled P.T. to make further improvements in strength and TTP to allow for optimal function Frequency of Therapy 1-2x/wk Duration of therapy 3-5wks Time and Billing Re-Eval Time 12 Re-Eval Billing Units 1 PHYSICIAN CERTIFICATION: I certify the specified therapy services for Milly Lea are required, authorized, and reviewed every 30 days.
== END 2023-05-16 11:00 | disposition home or self-care (01) ==
LOC: PT 10:00
PROVIDERS: PCP Internal Medicine; Visit Provider Orthopaedic Surgery
DX: M25.561 Pain in right knee (principal); M25.562 Pain in left knee
CPT/HCPCS: 97010; 97014; 97035; 97110; 97163; 97164; 97530; G0283

== ENCOUNTER 2023-08-14 16:51 | Outpatient (CLI) | payer MEDICARE, SELFPAY ==
[2023-08-14 21:26] LABS: Basophils % 0.8 % (0.1-2.0); Eosinophils # 0.1 K/mm3 (0.0-0.4); Eosinophils % 1.9 % (0.1-12.0); Hematocrit 40.6 % (37.0-47.0); Hemoglobin 12.7 g/dL (12.2-16.2); Lymphocytes # 1.8 K/mm3 (0.7-4.5); Lymphocytes % 35.4 % (10-50); Mean Corpuscular HGB Conc 31.4 g/dL (31.8-35.4); Mean Corpuscular Hemoglobin 29.5 pg (27.0-31.2); Mean Corpuscular Volume 94.1 fl (81-99); Mean Platelet Volume 9.4 fl (7.4-10.4); Monocytes # 0.3 K/mm3 (0.1-1.0); Monocytes % 6.5 % (1.7-9.3); Neutrophils # 2.8 K/mm3 (1.8-7.8); Neutrophils % 55.4 % (37.0-80.0); Platelet Count 247 K/mm3 (142-424); Red Blood Count 4.31 M/mm3 (4.20-5.40); Red Cell Distribution Width 13.6 % (11.5-17.5); White Blood Count 5.1 K/mm3 (4.8-10.8)
[2023-08-14 21:36] LABS: Chloride 99 mmol/L (98-107); Potassium 4.2 mmoL/L (3.5-5.1); Sodium 134 mmol/L (136-145)
[2023-08-14 21:39] LABS: Alanine Aminotransferase 45 U/L (12-78); Albumin Level 4.1 g/dl (3.5-5.0); Albumin/Globulin Ratio 1.7 (1.1-1.8); Alkaline Phosphatase 105 U/L (38-126); Anion Gap 10.2 mEq/L (5-15); Aspartate Amino Transferase 38 U/L (14-36); Bilirubin,Total 0.5 mg/dl (0.2-1.3); Blood Urea Nitrogen 17 mg/dl (7-17); Carbon Dioxide 29 mmol/L (22.0-30.0); Estimated Glomerular Filt Rate 82 ml/min (>60); GFR (African American) 100 ML/MIN (>60); Globulin 2.4 g/dL (1.3-3.2); Total Protein,Serum 6.5 g/dl (6.3-8.2)
[2023-08-14 21:40] LABS: Calcium 9.2 mg/dl (8.4-10.2); Glucose 86 mg/dl (74-100)
[2023-08-14 22:09] LABS: Thyroid Stimulating Hormone 1.45 uIU/mL (0.465-4.68)
[2023-08-14 23:18] LABS: Vitamin B12 284 pg/mL (239-931)
== END 2023-08-14 23:59 | disposition home or self-care (01) ==
PROVIDERS: PCP Internal Medicine; Visit Provider Internal Medicine
DX: E03.9 Hypothyroidism, unspecified (principal); R73.01 Impaired fasting glucose; I25.10 Atherosclerotic heart disease of native coronary artery without angina pectoris; M79.7 Fibromyalgia; G60.9 Hereditary and idiopathic neuropathy, unspecified; Z87.19 Personal history of other diseases of the digestive system
CPT/HCPCS: 80053; 82607; 84443; 85025

== ENCOUNTER 2023-11-06 09:22 | Outpatient (CLI) | payer MEDICARE, SELFPAY ==
--- NOTE | 2023-11-06 09:29 | XR_ITS ---
FINAL REPORT CLINICAL HISTORY: Neck pain right sided COMPARISON: None FINDINGS: CERVICAL SPINE 5 views were obtained. There is no acute fracture. There is minimal spondylolisthesis of L4 on L5. There is mild disc space narrowing at L4-5. The neuroforamen are adequately patent. IMPRESSION: Minimal spondylolisthesis of L4 on L5, probably degenerative. Reviewed, Interpreted and Dictated by Patrick Nathan MD Transcribed by Allison Vora Authenticated and [facility]
== END 2023-11-06 23:59 | disposition home or self-care (01) ==
LOC: RAD 09:24
PROVIDERS: PCP Internal Medicine; Visit Provider Internal Medicine
DX: M54.2 Cervicalgia (principal)
CPT/HCPCS: 72050

== ENCOUNTER 2023-11-14 09:53 | Outpatient (CLI) | payer MEDICARE, SELFPAY ==
--- NOTE | 2023-11-14 09:56 | XR_ITS ---
FINAL REPORT CLINICAL HISTORY: Knee Pain FINDINGS: RIGHT KNEE 3 views of the right knee were obtained. There is no acute fracture or dislocation. There are mild degenerative changes. A small joint effusion is present. Visualized joint spaces are normally aligned. Soft tissues are unremarkable. IMPRESSION: No acute bony abnormality. Reviewed, Interpreted and Dictated by Quinn Arzate III, MD Transcribed by Shanta Alvarez Authenticated and [facility]
--- NOTE | 2023-11-14 09:56 | XR_ITS ---
FINAL REPORT CLINICAL HISTORY: Knee Pain FINDINGS: LEFT KNEE: Three views of the left knee were obtained. There is no acute fracture or dislocation. Visualized joint spaces are normally aligned. There are mild degenerative changes. There is no joint effusion. Soft tissues are unremarkable. IMPRESSION: No acute bony abnormality. Reviewed, Interpreted and Dictated by Quinn Arzate III, MD Transcribed by Shanta Alvarez Authenticated and [facility] [place] [place]
== END 2023-11-14 23:59 | disposition home or self-care (01) ==
LOC: RAD 09:54
PROVIDERS: PCP Internal Medicine; Visit Provider Physician Assistant
DX: M17.0 Bilateral primary osteoarthritis of knee (principal)
CPT/HCPCS: 73562

== ENCOUNTER 2023-11-22 11:09 | Outpatient (CLI) | payer MEDICARE, SELFPAY | END 2023-11-22 23:59 | disposition home or self-care (01) | LOC: LAB.DROPOF 11-25 11:09 | PROVIDERS: PCP Physician Assistant; Visit Provider Physician Assistant | DX: N39.0 Urinary tract infection, site not specified (principal); B96.20 Unspecified Escherichia coli [E. coli] as the cause of diseases classified elsewhere | CPT/HCPCS: 87086; 87088; 87186 ==

== ENCOUNTER 2024-01-20 14:30 | Outpatient (CLI) | payer MEDICARE, SELFPAY ==
[2024-01-20 14:19] LABS: Basophils % 0.3 % (0.1-2.0); Eosinophils # 0.1 K/mm3 (0.0-0.4); Eosinophils % 1.4 % (0.1-12.0); Hematocrit 37.5 % (37.0-47.0); Hemoglobin 12.9 g/dL (12.2-16.2); Lymphocytes # 1.7 K/mm3 (0.7-4.5); Lymphocytes % 23.7 % (10-50); Mean Corpuscular HGB Conc 34.6 g/dL (31.8-35.4); Mean Corpuscular Hemoglobin 30.6 pg (27.0-31.2); Mean Corpuscular Volume 88.5 fl (81-99); Mean Platelet Volume 7.7 fl (7.4-10.4); Monocytes # 0.5 K/mm3 (0.1-1.0); Monocytes % 6.2 % (1.7-9.3); Neutrophils % 68.4 % (37.0-80.0); Platelet Count 252 K/mm3 (142-424); Red Blood Count 4.24 M/mm3 (4.20-5.40); Red Cell Distribution Width 13.7 % (11.5-17.5); White Blood Count 7.3 K/mm3 (4.8-10.8)
[2024-01-20 14:43] LABS: Albumin Level 4.6 g/dl (3.5-5.0); Chloride 100 mmol/L (98-107); Potassium 4.2 mmoL/L (3.5-5.1); Sodium 133 mmol/L (136-145)
[2024-01-20 14:46] LABS: Alanine Aminotransferase 42 U/L (12-78); Albumin/Globulin Ratio 1.8 (1.1-1.8); Alkaline Phosphatase 105 U/L (38-126); Anion Gap 11.2 mEq/L (5-15); Aspartate Amino Transferase 39 U/L (14-36); Bilirubin,Total 0.6 mg/dl (0.2-1.3); Blood Urea Nitrogen 16 mg/dl (7-17); Calcium 9.6 mg/dl (8.4-10.2); Carbon Dioxide 26 mmol/L (22.0-30.0); Estimated Glomerular Filt Rate 98 ml/min (>60); GFR (African American) 119 ML/MIN (>60); Globulin 2.6 g/dL (1.3-3.2); Glucose 87 mg/dl (74-100); Total Protein,Serum 7.2 g/dl (6.3-8.2)
[2024-01-20 15:50] LABS: Erythrocyte Sedimentation Rate 16 mm/hr (0-30)
== END 2024-01-20 23:59 | disposition home or self-care (01) ==
LOC: LAB.DROPOF 14:30
PROVIDERS: PCP Internal Medicine; Visit Provider Internal Medicine
DX: M54.2 Cervicalgia (principal); Z51.81 Encounter for therapeutic drug level monitoring; Z79.1 Long term (current) use of non-steroidal anti-inflammatories (NSAID)
CPT/HCPCS: 80053; 85025; 85651

== ENCOUNTER 2024-03-23 06:49 | Outpatient (CLI) | payer MEDICARE, SELFPAY ==
--- NOTE | 2024-03-23 07:00 | MR_ITS ---
FINAL REPORT TECHNIQUE: Multiplanar MR without gadolinium enhancement CLINICAL HISTORY: Chronic neck pain right sided neck pain COMPARISON: None FINDINGS: Limited images of the posterior fossa are unremarkable. There is minimal anterolisthesis of C3 on C4 and C4 on C5. Cervical spinal cord shows normal signal and contour. C2-3: There is no evidence of canal stenosis or neural foraminal narrowing. C3-4: A minimal annular bulge is present without central canal stenosis. C4-5: A mild annular bulge is present with mild facet arthropathy. C5-6: A mild annular bulge is present with mild facet arthropathy. C6-7: A minimal bulge is noted. C7-T1: No evidence of canal stenosis or neural foraminal narrowing. IMPRESSION: IMPRESSION: Mild degenerative subluxation with mild degenerative bulges as described. Reviewed, Interpreted and Dictated by Yvonne Berry MD Transcribed by Shavonne Smith Authenticated and [facility]
== END 2024-03-23 23:59 | disposition home or self-care (01) ==
LOC: RAD 06:50
PROVIDERS: PCP Internal Medicine; Visit Provider Internal Medicine
DX: M50.30 Other cervical disc degeneration, unspecified cervical region (principal); M47.812 Spondylosis without myelopathy or radiculopathy, cervical region
CPT/HCPCS: 72141

== ENCOUNTER 2024-05-07 11:00 | Outpatient (RCR) | payer MEDICARE, SELFPAY ==
--- NOTE | 2024-04-21 12:08 | HMH.PTOPEV ---
PT Outpatient Evaluation Rehab PT Outpatient Evaluation Start: 04/21/24 10:53 Freq: Status: Active Protocol: Document 04/21/24 10:53 DANIEL (Rec: 04/21/24 12:07 DANIEL [id number]) E-signed By Sharlene Palomares, PT Outpatient Therapy Subjective History Subjective History Pt is a 73 y/o female who reports chronic neck pain with worsening of pain in October of last year. Pt denies known trauma or injury. Pt had a cervical spine MRI on 03/23/24 with impression of Mild degenerative subluxation with mild degenerative bulges as described. There is minimal anterolisthesis of C3 on C4 and C4 on C5. Pt reports R>L sided neck pain that refers into the top of her shoulders. Pt reports pain is aggravated by looking over her shoulder, crafting/art, reading, and sleeping. Pt denies upper extremity pain or paresthesia. Pt denies headaches. R handed Medical History: Allergic rhinitis, Post-nasal drainage, Hoarseness or changing voice, Dyspnea, Stenosis of carotid artery, Dizziness, Chest pain, Fatigue, Hyperlipidemia, CAD (coronary artery disease) New diagnosis of cancer in past 12 No months? Chief Complaint Pain,Stiff Symptom Type Ache,Sharp,Dull Symptoms Relieved By Rest/Positioning,Heat,OTC Meds Current Functional Limitations Reaching,Lifting,Housework, Desk Work/Reading,Driving, Sleeping Symptom Description Constant and Continuous, Intermittent Level of pain today (0-10) 1 Pain scale - at its best (0-10) 0 Pain scale - at its worst (0-10) 7 Cervical Eval Palpation Cervical Muscles R Cervical Paraspinal,L Cervical Paraspinal,R Suboccipital,L Suboccipital,R SCM,L SCM,R Upper Trapezius,L Upper Trapezius Cervical/Thoracic Palpation Findings Tenderness Flexibility Deficits Upper Trapezius Muscle Length (R) Moderate Tightness,(L) Moderate Tightness Levaetor Scapulae Muscle Length (R) Moderate Tightness,(L) Moderate Tightness Pectoralis Major Muscle Length (R) Mild Tightness,(L) Mild Tightness Pectoralis Minor Muscle Length (R) Mild Tightness,(L) Mild Tightness Passive Joint Mobility Cervical PIVM Dec: R C2/3 L C2/3 R C3/4 L C3/4 R C4/5 L C4/5 R C5/6 L C5/6 R C6/7 L C6/7 AROM Cervical Spine Extension Active Range of 45 Motion (degrees) Cervical Spine Flexion Active Range of 30 Motion (degrees) Cervical Spine Right Lateral Flexion 40 Active Range of Motion (degrees) Cervical Spine Left Lateral Flexion 45 Active Range of Motion (degrees) Cervical Spine Right Rotation Active 55 Range of Motion (degrees) Cervical Spine Left Rotation Active 60 Range of Motion (degrees) MMT Bilateral Deltoid (C5) 5 Normal Biceps Brachii Strength Grade 5 Normal Wrist Extension Strength Grade 5 Normal Triceps Brachii Strength Grade 5 Normal Wrist Flexion Strength Grade 5 Normal Extensor Pollicis Longus Strength Grade 5 Normal Finger Abduction Strength Grade 5 Normal Altered Sensation Comment equal and intact to light touch sensation bilaterally Special Test C-Spine Foraminal Compression (Spurling) Negative Left,Negative Right Test C-spine Verterbral Accessory Movements Right P/A [place],Left P/A [place] that Elicit Symptoms Shoulder/Elbow Eval Shoulder Objective Measurements Shoulder MMT Bilateral Lower Trapezius Strength Grade 4- Good- Middle Trapezius Strength Grade 4- Good- Upper Trapezius/Levator Scapulae 4 Good Elbow Objective Measurements Neck Disability Index Neck Disability Index Section 1: Pain Intensity The pain is very mild at moment Section 2: Personal Care (washing, It is painful to look after dressing, etc.) myself and I am slow and careful Section 3: Lifting Pain prevents me from lifting heavy weights, but I can manage light to Section 4: Reading I can't read as much as I want because of moderate pain in my neck Section 5: Headaches I have no headaches at all Section 6: Concentration I can concentrate fully when I want to with slight difficulty Section 7: Work I cannot do my usual work Section 8: Driving I can't drive my car as long as I want because of moderate pain in my Section 9: Sleeping My sleep is midly disturbed (1 -2 hrs sleepless) Section 10: Recreation I am able to engage in a few of my usual recreation activities because NDI Score 21 Outpatient Therapy Assessment Impairments Problems/Impairmments Palpation Tenderness,Impaired Range of Motion,Impaired Strength,Impaired Driving, Impaired Lifting,Impaired Household Care,Impaired Desk/ Computer Activities,Subjective C/O Pain,Impaired Self Care/ Self Management Prognosis Rehab Potential Good Clinical Impression Consistent with Diagnosis Yes Short Term Goals Number of Weeks 3 Decrease Subjective C/O Pain Yes: Improve pain at worst to 5/10 to improve overall QOL Improve Self Care/Self Management Yes Patient to be Ind w/ HEP Yes Assisted Goals Number of Weeks 6 Decreased Palpation Tenderness Yes: 1/4 TTP of R & L UPA of C2-6 Increase Range of Motion Yes: Improve cervical AROM flex to 45, R rot to 60 Increase Strength Yes: Improve scpular strength to 4-4+/5 grossly to assist with posture/function Improve Tolerance to Desk/Computer Yes: report ability to perform Activities craft/artwork with pain 3/10 or less Improve Neck Disability Index Score Yes: Improve score to 16 or less to improve overall QOL Decrease Subjective C/O Pain Yes: Improve pain at worst to 3/10 to improve overall QOL Outpatient Therapy Plan of Care Treatment Plan May Include Therapeutic Exercise Including Home Yes Exercise Program Manual Therapy Techniques Yes Neuromuscular Re-education Yes Therapeutic Activities to Return to Yes Previous Functional/Work Level Gait Training Yes ADL/Self Care Education Yes Mechanical Traction Yes Dry Needling Yes Thermal Modalities Yes Electrical Stimulation Yes Ultrasound/Phonophoresis Yes Iontophoresis Yes Massage Yes Eval/Re-Eval Yes Frequency Times per week 2 Duration Number of Weeks 4-6 Addendums This patient is a candidate for social No or vocational rehab? Patient/Guardian verbally acknowledges Yes understanding of treatment program and consents to further treatment? Patient/Guardian verbally acknowledges Yes understanding of diagnosis, prognosis and goals for treatment? Eval Complexity PT Charges 31777 - Moderate Complexity PHYSICIAN CERTIFICATION: I certify the specified therapy services for Milly Lea are required, authorized, and reviewed every 30 days.
== END 2024-05-07 23:59 | disposition home or self-care (01) ==
LOC: PT 11:00
PROVIDERS: Visit Provider Internal Medicine
DX: M54.2 Cervicalgia (principal); M47.812 Spondylosis without myelopathy or radiculopathy, cervical region
CPT/HCPCS: 97110; 97140; 97163

== ENCOUNTER 2024-05-18 13:00 | Outpatient (RCR) | payer MEDICARE, SELFPAY | END 2024-05-18 23:59 | disposition home or self-care (01) | LOC: PT 13:00 | PROVIDERS: Visit Provider Internal Medicine | DX: M47.812 Spondylosis without myelopathy or radiculopathy, cervical region (principal); M54.2 Cervicalgia | CPT/HCPCS: 97014; 97110; 97140; G0283 ==

== ENCOUNTER 2024-11-04 09:39 | Outpatient (CLI) | payer MEDICARE, SELFPAY ==
[2024-11-04 10:04] LABS: Hematocrit 37.7 % (37.0-47.0); Hemoglobin 12.2 g/dL (12.2-16.2); Immature Granulocytes % 0.2 %; Mean Corpuscular HGB Conc 32.4 g/dL (31.8-35.4); Mean Corpuscular Hemoglobin 28.7 pg (27.0-31.2); Mean Corpuscular Volume 88.7 fl (81-99); Nucleated Red Blood Cells % 0 %; Platelet Count 213 K/mm3 (142-424); Red Blood Count 4.25 M/mm3 (4.20-5.40); Red Cell Distribution Width-SD 42.3 fL; White Blood Count 4.9 K/mm3 (4.8-10.8)
[2024-11-04 10:34] LABS: Hemoglobin A1C 5.2 % (4.0-6.0)
[2024-11-04 10:36] LABS: Albumin Level 3.8 g/dl (3.5-5.0); Chloride 102 mmol/L (98-107); Potassium 4.1 mmoL/L (3.5-5.1); Sodium 134 mmol/L (136-145)
[2024-11-04 10:38] LABS: Blood Urea Nitrogen 17 mg/dl (7-17); Creatinine,Serum 0.60 mg/dl (0.52-1.04); Estimated Glomerular Filt Rate 98 ml/min (>60); GFR (African American) 119 ML/MIN (>60)
[2024-11-04 10:39] LABS: Alanine Aminotransferase 24 U/L (12-78); Albumin/Globulin Ratio 1.2 (1.1-1.8); Alkaline Phosphatase 85 U/L (38-126); Anion Gap 6.1 mEq/L (5-15); Aspartate Amino Transferase 31 U/L (14-36); Bilirubin,Total 0.5 mg/dl (0.2-1.3); Calcium 9.6 mg/dl (8.4-10.2); Carbon Dioxide 30 mmol/L (22.0-30.0); Cholesterol 244 mg/dl (140-200); Globulin 3.3 g/dL (1.3-3.2); Glucose 92 mg/dl (74-100); HDL Cholesterol 77 mg/dl (40-60); Magnesium 2.1 mg/dl (1.6-2.3); Total Protein,Serum 7.1 g/dl (6.3-8.2); Triglycerides 66 mg/dl (30-150)
[2024-11-04 11:41] LABS: Thyroid Stimulating Hormone 1.56 uIU/mL (0.465-4.68)
== END 2024-11-04 23:59 | disposition home or self-care (01) ==
LOC: LAB 09:40
PROVIDERS: PCP Internal Medicine; Visit Provider Internal Medicine
DX: E03.9 Hypothyroidism, unspecified (principal); Z51.81 Encounter for therapeutic drug level monitoring; Z79.1 Long term (current) use of non-steroidal anti-inflammatories (NSAID); I25.10 Atherosclerotic heart disease of native coronary artery without angina pectoris; R73.02 Impaired glucose tolerance (oral); R25.2 Cramp and spasm; M47.812 Spondylosis without myelopathy or radiculopathy, cervical region; E78.5 Hyperlipidemia, unspecified
CPT/HCPCS: 36415; 80053; 80061; 83036; 83735; 84443; 85025; 85651

== ENCOUNTER 2025-01-14 10:53 | Outpatient (CLI) | payer MEDICARE, SELFPAY ==
--- NOTE | 2025-01-14 11:00 | CA_ITS ---
APPROVED REPORT EXAM: Comprehensive 2D, Doppler, and color-flow Echocardiogram Embedded Developer: La Michele RVT Ht: 5 ft 3 in Wt: 132lbs BSA: 1.62 BP: 150/63 mmHg Indications: DIZZINESS,FATIGUE 2D Dimensions LA Volume 24.20 mL LA Volume Index 14.94 mL/m2 (M/F) 16-34 M-Mode Dimensions RVDd 2.67 cm (0.9-2.6) LA Diam 2.17 cm (1.9-4.0) LVDd 3.86 cm (3.5-5.7) LVDs 2.73 cm (3.5-5.7) IVSd 0.64 cm (0.6-1.1) PWd 0.38 cm (0.6-1.1) EF (Teich) 56.80% FS 29.30% EDV (Teich) 64.30 mL TAPSE 2.52 (<1.7) ESV (Teich) 27.80 mL LV Diastology E Decel Time 217 (160-240 msec) E/A Ratio 0.8 Aortic Valve JOSHUA Index 1.09 cm2/m2 AoV Peak Joselo. 130.0 (50-130 cm/s) AI PHT 937.00 ms AO Peak GR. 6.80 mmHg AO Mean GR. 3.70 (<5 mmHg) AO VTI 28.8 (18-25 cm) JOSHUA (VTI) 1.81 (2.5-4.5 cm2) Mitral Valve MV E Max Joselo. 91.0 (40-130 cm/s) MV A Velocity 120.0 (40-130 cm/s) E/A Ratio 0.76 MV PHT 63.0 ms Pulmonary Valve PV Peak Velocity 54.0 (50-150 cm/s) Tricuspid Valve TR P. Velocity 248.00 cm/s RAP Estimate 8.00 mmHg RVSP 32.60 mmHg Left Ventricle The left ventricle is normal size. Left ventricular systolic function is mildly reduced. There is increased left ventricular wall thickness. There is mild global hypokinesis. There is moderate hypokinesis of the septal and inferoseptal LV mo. The left ventricular diastolic function is indeterminate. LVEF is 45% Right Ventricle The right ventricle is mildly dilated. The right ventricular systolic function is normal. Atria The left atrium is mildly dilated. The right atrium is mildly dilated. There is no color Doppler evidence of interatrial shunt. Aortic Valve The aortic valve is mildly thickened. There is no hemodynamically significant aortic valvular stenosis. Mild aortic regurgitation is present. Mitral Valve The mitral valve is normal in structure. No evidence of mitral valve stenosis. Trace mitral regurgitation is present. Tricuspid Valve The tricuspid valve leaflets are thin and pliable. Mild tricuspid regurgitation. RVSP is 20-25 mmHg. Pulmonic Valve The pulmonary valve is grossly normal in structure. Trace pulmonic valve regurgitation is present. Great Vessels The aortic root is normal in size. IVC is normal in size and collapses >50% with inspiration. Pericardium There is no pericardial effusion. Other Information Study Quality: Fair Conclusion Mild reduction in LV systolic function (LVEF 45%). Moderate hypokinesis of the septal and inferoseptal LV mo. Mild RV dilation. Mild biatrial dilation. Mild AI, mild TR. Electronically signed by : Milagros Winters MD 01/17/2025 23:36:57
== END 2025-01-14 23:59 | disposition home or self-care (01) ==
LOC: RT 10:54
PROVIDERS: PCP Internal Medicine; Visit Provider Nurse Practitioner
DX: I08.2 Rheumatic disorders of both aortic and tricuspid valves (principal); I25.10 Atherosclerotic heart disease of native coronary artery without angina pectoris; R94.31 Abnormal electrocardiogram [ECG] [EKG]; R93.1 Abnormal findings on diagnostic imaging of heart and coronary circulation
CPT/HCPCS: 93306

== ENCOUNTER 2025-02-17 08:49 | Day surgery (SDC) | payer MEDICARE, SELFPAY ==
[2025-02-17] VITALS (12 sets, daily range): BP systolic 117–155; BP diastolic 43–102; PULSE 63–88; RESP 18–22; TEMP 36.1; O2SAT 92–99; BMI 22.3
--- NOTE | 2025-02-17 07:10 | IR_ITS ---
APPROVED REPORT Patient Location: Outpatient Skid Man: TEO Diaz RT (R) PROCEDURES Left heart catheterization Left ventriculogram Selective coronary angiogram INDICATION New onset cardiomyopathy Informed consent was obtained prior to the procedure. COMPLICATIONS NONE Estimated Blood Loss: LESS THAN 10 ML TECHNIQUE One percent lidocaine used to anesthetize the right anterior aspect of the wrist. The right radial artery was accessed via the Seldinger technique. A 6 [place] sheath was placed in the right radial artery. 2.5 mg of Verapamil, 800 mcg of nitroglycerin, 1mg Lidocaine and 5000 U Heparin were given through the arterial sheath. The JL3 catheter was also used to perform left heart catheterization, left ventriculogram and selective coronary angiogram. At the end of the procedure the sheath was removed good hemostasis was achieved using Traclet band, patient was transferred to the postop holding area in stable condition. ANGIOGRAPHIC RESULTS The left main artery Normal The left anterior descending artery Normal The circumflex artery Normal The right coronary artery Dominant normal The FALL ventriculogram reveals Reduced 45% The left ventricular end-diastolic pressure 15 mmHg IMPRESSION Normal coronary arteries Reduced ejection fraction Borderline LVEDP PLAN 1. Continue medical management and consider cardiac MRI Electronically signed by : Matt Infante MD 02/17/2025 13:19:24
[2025-02-17 09:12] LABS: Hematocrit 41.7 % (37.0-47.0); Hemoglobin 13.7 g/dL (12.2-16.2); Immature Granulocytes % 0.2 %; Mean Corpuscular HGB Conc 32.9 g/dL (31.8-35.4); Mean Corpuscular Hemoglobin 29.0 pg (27.0-31.2); Mean Corpuscular Volume 88.3 fl (81-99); Nucleated Red Blood Cells % 0 %; Platelet Count 225 K/mm3 (142-424); Red Blood Count 4.72 M/mm3 (4.20-5.40); Red Cell Distribution Width-SD 41.9 fL; White Blood Count 4.9 K/mm3 (4.8-10.8)
--- NOTE | 2025-02-17 09:25 | SUR.PREOP ---
Pt states she is very anxious about her procedure, offered pt medication for anxiety, pt refused
[2025-02-17 09:28] LABS: Anion Gap 13.5 mEq/L (5-15); Blood Urea Nitrogen 19 mg/dl (7-17); Calcium 9.7 mg/dl (8.4-10.2); Carbon Dioxide 24 mmol/L (22.0-30.0); Chloride 101 mmol/L (98-107); Creatinine Clearance Estimated 45 mL/min (50-200); Creatinine,Serum 0.60 mg/dl (0.52-1.04); Estimated Glomerular Filt Rate 98 ml/min (>60); GFR (African American) 119 ML/MIN (>60); Glucose 91 mg/dl (74-100); Potassium 5.5 mmoL/L (3.5-5.1); Sodium 133 mmol/L (136-145)
[2025-02-17] MEDS: 0.9 % SODIUM CHLORIDE 500 ML 25 ML IV (12:54)
[2025-02-17] MEDS: NITROGLYCERIN 800MCG/8ML SYR (CATH LAB) 800 MCG IA (12:54)
[2025-02-17] MEDS: HEPARIN 1,000 UNITS/ML 10ML VIAL (CATH LAB) 5000 UNIT IV (12:55)
[2025-02-17] MEDS: HEPARIN 1,000 UNITS/500ML NS (CATH LAB) 3000 UNIT IV (12:55)
[2025-02-17] MEDS: VERAPAMIL 2.5MG/ML 2ML VIAL 2.5 MG IV (12:55)
[2025-02-17] MEDS: LIDOCAINE 1% 10ML MDV 10 ML IJ (12:55)
[2025-02-17] MEDS: FENTANYL 100MCG/2ML VIAL 50 MCG IV (13:15)
[2025-02-17] MEDS: MIDAZOLAM HCL 1MG/ML 5ML VIAL 1 MG IV (13:15)
[2025-02-17] MEDS: IOPAMIDOL-370 (76%);100ML BOTTLE 50 ML IV (13:46)
== END 2025-02-17 15:37 | disposition home or self-care (01) ==
LOC: CATHLAB 08:50
PROVIDERS: PCP Internal Medicine; Visit Provider Internal Medicine
PROC: 4A023N7 Measurement of Cardiac Sampling and Pressure, Left Heart, Percutaneous Approach (ICD-10-PCS; CPT 93452; principal; 2025-02-17 09:30)
DX: I42.9 Cardiomyopathy, unspecified (principal); I25.10 Atherosclerotic heart disease of native coronary artery without angina pectoris; R07.9 Chest pain, unspecified; E78.2 Mixed hyperlipidemia; I65.23 Occlusion and stenosis of bilateral carotid arteries; I35.1 Nonrheumatic aortic (valve) insufficiency; I36.1 Nonrheumatic tricuspid (valve) insufficiency; R03.0 Elevated blood-pressure reading, without diagnosis of hypertension; R42 Dizziness and giddiness; T73.2XXA Exhaustion due to exposure, initial encounter; Z79.82 Long term (current) use of aspirin; Z79.890 Hormone replacement therapy; Z79.899 Other long term (current) drug therapy; Z88.1 Allergy status to other antibiotic agents; Z88.8 Allergy status to other drugs, medicaments and biological substances
CPT/HCPCS: 80048; 85025; 93458; 99152; C1725; C1769; J1200; J1644; J2003; J3010; J7040; Q9967